=== PATIENT | female | born 2000 | race African-American/Black ===

== ENCOUNTER 2023-02-22 00:17 | Emergency (ER) | payer BC, MEDICAID ==
[2023-02-22] MEDS ORDERED: Acetaminophen 500 MG TAB ONE (00:54)
[2023-02-22] MEDS ORDERED: Sodium Chloride 0.9% 1,000 ML ONE (00:54)
[2023-02-22 01:09] LABS: Bilirubin Negative (Negative); Blood, Urine Negative (Negative); Clarity Hazy (Clear); Glucose, Urine (Dipstick) Negative (Negative); Ketone, Urine Trace mg/dL (Negative); Leukocyte Trace (Negative); Nitrite Negative (Negative); Protein, Urine (Dipstick) 30 mg/dL (Neg-Trace); pH, Urine 7.5 (5.0-9.0)
[2023-02-22 01:10] LABS: CAUTI Indications for Culture Pregnancy
[2023-02-22 01:11] LABS: Urine Culture Reflex Yes Yes
[2023-02-22 01:16] LABS: Hematocrit 31.7 % (36.0-47.0); Hemoglobin 9.9 g/dL (12.0-16.0); Mean Corpuscular HGB CONC 31.2 g/dL (32.0-36.0); Mean Corpuscular Hemoglobin 25.5 pg (27.0-31.0); Mean Corpuscular Volume 81.8 fl (78.0-98.0); RBC Distribution Width 13.7 % (11.5-14.5); Red Blood Cell (RBC) Count 3.88 mill/uL (4.20-5.40); White Blood Cell (WBC) Count 9.7 10x3/uL (4.8-10.8)
[2023-02-22 01:17] LABS: #Basophils 0.1 thou/uL (0.0-0.2); #Lymphocytes 1.8 thou/uL (1.20-3.40); #Monocytes 0.9 thou/uL (0.11-0.59); #Neutrophils 6.8 thou/uL (1.40-6.50); %Basophils 1.4 % (0.0-1.0); %Eosinophils 0.3 % (0.0-10.0); %Lymphocytes 18.8 % (21.0-51.0); %Monocytes 8.9 % (0.0-10.0); %Neutrophils 70.6 % (42.0-75.0); Manual Diff?? NO; Platelet Count 221 10x3/uL (130-400)
[2023-02-22 01:18] LABS: Mean Platelet Volume 11.2 fL (7.4-10.4)
[2023-02-22 01:29] LABS: ALT (SGPT) Less than 7 U/L (8-55); AST (SGOT) 12 U/L (5-34); Albumin 3.1 g/dL (3.5-5.0); Alkaline Phosphatase 205 U/L (40-110); Anion Gap 13 mmol/L (10-20); BUN (Urea Nitrogen) 5 mg/dL (7.0-18.7); Bilirubin, Total 0.4 mg/dL (0.2-1.2); Calc. Creatinine Clearance 0 mL/min (70-130); Calcium 8.6 mg/dL (7.8-10.44); Carbon Dioxide 16 mmol/L (22-29); Chloride 111 mmol/L (98-107); Estimated GFR 129; Globulin 3.2 g/dL (2.4-3.5); Glucose 98 mg/dL (70-105); Potassium 3.6 mmol/L (3.5-5.1); Protein, Total 6.3 g/dL (6.0-8.3); Sodium 136 mmol/L (136-145)
[2023-02-22] MEDS ORDERED: Metoclopramide HCl 10 MG/2 ML VIAL ONE (02:03)
[2023-02-22] MEDS ORDERED: diphenhydrAMINE 50 MG/ML VIAL ONE (02:03)
[2023-02-22] MEDS ORDERED: Sodium Chloride 0.9% 100 ML ONE (02:03)
== END 2023-02-22 03:06 | disposition home or self-care (01) ==
LOC: NAV ERS 00:17
DX: O99.353 Diseases of the nervous system complicating pregnancy, third trimester (principal); R51.9 Headache, unspecified; Z3A.37 37 weeks gestation of pregnancy
CPT/HCPCS: 80053; 81001; 85025; 87086; 96361; 96365; 96375; J1200; J2765; J7050